=== PATIENT | female | born 2000 | race Caucasian/White ===

== ENCOUNTER 2023-02-06 11:44 | Emergency (ER) | payer BC, OTHER ==
[2023-02-06 12:23] VITALS: BP 109/81; PULSE 80; RESP 16; TEMP 98.3; BMI 22.3
[2023-02-06] MEDS ORDERED: ACETAMINOPHEN 1000 MG/100 ML BAG IVPB ONE (12:38)
[2023-02-06] MEDS ORDERED: SODIUM CHLORIDE 0.9% 500 ML INFUS.BAG IV ONE (12:38)
[2023-02-06 13:31] LABS: HEMOGLOBIN 13.9 G/dL (10.7-15.3); MCH 28.7 pg (25.7-33.7); MCHC 33.2 g/dl (32.0-36.0); MEAN CELL VOLUME 86.7 fl (80-96); MEAN PLT VOLUME 6.7 fl (7.5-11.1); PLATELET COUNT 406.8 10^3/uL (134-434); RBC 4.85 10^6/uL (3.60-5.2); RDW 13.7 % (11.6-15.6); WHITE BLOOD COUNT 7.5 10^3/uL (4.0-10.8)
[2023-02-06 13:35] LABS: PLATELET ESTIMATE ADEQUATE
[2023-02-06 13:41] LABS: ALBUMIN 4.4 g/dl (3.4-5.0); BLOOD UREA NITROGEN 11.8 mg/dl (7-18); CALCIUM 9.2 mg/dl (8.5-10.1); CREATININE 0.9 mg/dl (0.6-1.3); POTASSIUM 4.4 mmol/L (3.5-5.1); SGOT/AST 17.4 U/L (15-37); SGPT/ALT 3.7 U/L (7-52); TOT PROT 7.7 g/dl (6.4-8.2)
[2023-02-06 13:49] LABS: EPITHELIAL CELLS MODERATE /hpf
[2023-02-06 14:31] LABS: BILIRUBIN,TOTAL 0.4 mg/dL (0.2-1)
[2023-02-06] MEDS ORDERED: LIDOCAINE HCL 1%, 10 MG/ML (20ML VIAL) ONE (14:33)
[2023-02-06] MEDS ORDERED: DOXYCYCLINE HYCLATE 100 MG CAPSULE PO ONE ×2 (15:27→15:52)
== END 2023-02-06 16:00 | disposition home or self-care (01) ==
LOC: FER 11:44
DX: R55 Syncope and collapse (principal); R42 Dizziness and giddiness; R11.0 Nausea; R63.0 Anorexia; R61 Generalized hyperhidrosis; S01.112A Laceration without foreign body of left eyelid and periocular area, initial encounter; W19.XXXA Unspecified fall, initial encounter; Y92.002 Bathroom of unspecified non-institutional (private) residence as the place of occurrence of the external cause
CPT/HCPCS: 36415; 70450-TC; 80053; 81003; 81015; 84703; 85027; 93005; 99285-25